=== PATIENT | male | born 1995 | race Caucasian/White ===

== ENCOUNTER 2016-10-26 00:30 | Emergency (ER) | payer SELFPAY ==
[~2016-10-26] VITALS: Ht 177.8 cm; Wt 116.1 kg
[2016-10-26 00:47] VITALS: BP 120/88
--- NOTE | 2016-10-26 01:15 | NUR ---
TO ER BED 7
--- NOTE | 2016-10-26 01:15 | NUR ---
21Y M BIB FAMILY C/O OF LEFT ARM TINGLING AND LEFT HAND CRAMPING X 1 DAY. PT STATES HE HAD AN ARGUEMENT WITH FRIENDS IN [place] ON 10/19/16, DRANK ALCOHOL BUT NO USE OF DRUGS. PT DENIES ANY SOB, CP, NVD OR PAIN AT THE MOMENT. PT IS AAO X 4. 0/10 PAIN.
[2016-10-26 01:31] VITALS: BP 126/79
--- NOTE | 2016-10-26 01:31 | NUR ---
Patient discharged with v/s stable BY ER MD DR ROTHMAN . Written and verbal after care instructions given and explained BY ER MD DR ROTHMAN. Patient verbalized understanding. Ambulatory with steady gait. All questions addressed prior to discharge BY ER MD DR ROTHMAN. Advised to follow up with PMD.
== END 2016-10-26 01:31 | disposition home or self-care (01) ==
LOC: MED 00:30
DX: F41.9 Anxiety disorder, unspecified (principal)